=== PATIENT | female | born 1945 | race Caucasian/White ===

== ENCOUNTER → 2017-12-08 | Outpatient (CLI) | payer OTHER | LOC: BRMIMAGING 11:54 | PROVIDERS: ATTEND Internal Medicine Rheumatology | DX: M53.82 Other specified dorsopathies, cervical region (principal); M43.12 Spondylolisthesis, cervical region; M41.82 Other forms of scoliosis, cervical region; M51.36 Other intervertebral disc degeneration, lumbar region | CPT/HCPCS: 72040-PO; 72100-PO ==